=== PATIENT | female | born 1940 | race Caucasian/White ===

== ENCOUNTER 2017-03-27 16:20 | Inpatient (IN) | payer MEDICARE, MEDICAID ==
[2017-03-26] MEDS: HEPARIN SODIUM, PORCINE 5000 UNITS/1 ML VIAL SQ SCH (21:00)
[~2017-03-27] VITALS: Ht 160 cm; Wt 78.9 kg
[2017-03-27] VITALS (11 sets, daily range): BP systolic 144–194; BP diastolic 63–130
[2017-03-27] MEDS ORDERED: methylPREDNISolone SOD SUCC 125 MG/2ML VIAL IV ONE (16:30)
[2017-03-27] MEDS ORDERED: ALBUTEROL FS 2.5 MG/3 ML VIAL.NEB CONTNEB ONE (16:30)
[2017-03-27] MEDS ORDERED: NITROGLYCERIN PACKET 1 GM PACKET TOP ONE (16:30)
[2017-03-27] MEDS ORDERED: IPRATROPIUM NEB FS 0.5 MG/2.5 ML AMPUL.NEB NEB ONE (16:30)
[2017-03-27 16:32] LABS: ABG BASE EXCESS -6.1 mmol/L; ABG OXYGEN SATURATION 93.5 % (92.0-98.5); ABG PCO2 35.4 mmHg (35.0-45.0); ABG PH 7.345 (7.350-7.450); ABG PO2 76.2 mmHg (75.0-100.0); AaDO2 240.5 mmHg; COHb 0.5 % (0.5-1.5); MetHb 0.4 % (0.0-1.5); O2Hb 92.7 % (94.0-97.0); SITE, ABG Left Radial; VENT MODE, BG ST 15/5 BUR 14
[2017-03-27] MEDS ORDERED: methylPREDNISolone SOD SUCC 125 MG/2ML VIAL ONE (16:33)
[2017-03-27] MEDS ORDERED: NITROGLYCERIN PACKET 1 GM PACKET ONE (16:33)
[2017-03-27 16:43] LABS: BASOPHILS % (AUTO) 0.3 % (0.0-2.0); EOSINOPHILS # (AUTO) 0.1 /CMM (0.0-0.7); EOSINOPHILS % (AUTO) 2.5 % (0.0-6.0); HEMATOCRIT 34 % (33-45); HEMOGLOBIN 10.7 g/dL (11.5-14.8); LYMPHOCYTES # (AUTO) 0.5 /CMM (0.8-4.8); LYMPHOCYTES % (AUTO) 9.2 % (20.0-44.0); MEAN CORPUSCULAR HEMOGLOBIN 26 PG (26.0-33.0); MEAN CORPUSCULAR HGB CONC 32 g/dl (31.0-36.0); MEAN CORPUSCULAR VOLUME 81 fL (82-100); MONOCYTES # (AUTO) 0.3 /CMM (0.1-1.30); MONOCYTES % (AUTO) 5.4 % (2.0-12.0); NEUTROPHILS # (AUTO) 4.7 /CMM (1.8-8.9); NEUTROPHILS % (AUTO) 82.6 % (43.0-81.0); PLATELET COUNT (AUTO) 226 /CMM (150-450); RED BLOOD CELL COUNT(AUTO) 4.13 MIL/uL (4.0-5.2); WHITE BLOOD COUNT (AUTO) 5.6 K/uL (4.3-11.0)
[2017-03-27] MEDS ORDERED: ALBUTEROL FS 2.5 MG/3 ML VIAL.NEB ONE (16:43)
[2017-03-27] MEDS ORDERED: IPRATROPIUM NEB FS 0.5 MG/2.5 ML AMPUL.NEB ONE ×2 (16:43→22:52)
[2017-03-27 16:53] LABS: CALCIUM, SERUM 7.8 mg/dL (8.5-10.1); CARBON DIOXIDE 22 mmol/L (21-32); CHLORIDE 104 mmol/L (98-107); CREATININE 2.1 mg/dL (0.6-1.3); GLUCOSE 168 mg/dL (74-106); POTASSIUM 4.5 mmol/L (3.5-5.1); SODIUM SERUM 136 mmol/L (136-145); UREA NITROGEN, BLOOD 45 mg/dL (7-18)
--- NOTE | 2017-03-27 16:55 | NUR ---
CALLED NURSING SUP. FOR ICU BED
[2017-03-27 17:01] LABS: TROPONIN I 0.027 ng/mL (0.00-0.056)
[2017-03-27] MEDS ORDERED: AMLO5TAB2 PO (17:03)
[2017-03-27] MEDS ORDERED: VALS80TA2 PO (17:03)
[2017-03-27] MEDS ORDERED: CARV3.122 PO (17:03)
[2017-03-27 17:06] LABS: ALANINE AMINOTRANSFERASE 19 U/L (12-78); ALBUMIN 2.9 g/dL (3.4-5.0); ALKALINE PHOSPHATASE 115 U/L (46-116); ASPARTATE AMINOTRANSFERASE 21 U/L (15-37); B-TYPE NATRIURETIC PEPTIDE 31886 PG/ML (0-125); BILIRUBIN,DIRECT 0.2 mg/dL (0.0-0.2); BILIRUBIN,TOTAL 0.4 mg/dL (0.2-1.0); TOTAL PROTEIN, SERUM 6.4 g/dL (6.4-8.2)
--- NOTE | 2017-03-27 17:27 | NUR ---
ILA CUENCAD, LEONID WILSON NP SEWER TAPPER
[2017-03-27] MEDS ORDERED: FUROSEMIDE 40 MG/4 ML VIAL IV ONE (17:30)
[2017-03-27] MEDS ORDERED: LEVOFLOXACIN 750 MG /D5W 150ML PIGGYBACK IV ONE (17:30)
[2017-03-27] MEDS ORDERED: ASPIRIN 325 MG TABLET PO ONE (17:30)
[2017-03-27] MEDS ORDERED: IV SET PRIMARY PUMP SET 1 EA INFUS.SET MC ONE ×2 (17:47→20:16)
[2017-03-27] MEDS ORDERED: LEVOFLOXACIN 750 MG /D5W 150ML 150 ML IV ONE (17:47)
[2017-03-27] MEDS ORDERED: ASPIRIN 325 MG TABLET ONE (17:47)
[2017-03-27] MEDS ORDERED: hydrALAZINE HCL IV 20 MG VIAL ONE (17:47)
[2017-03-27] MEDS ORDERED: FUROSEMIDE 40 MG/4 ML VIAL ONE (17:47)
[2017-03-27] MEDS ORDERED: hydrALAZINE HCL IV 20 MG VIAL IV ONE (18:00)
[2017-03-27] MEDS ORDERED: ONDANSETRON HCL/PF 4 MG/2 ML VIAL IVP PRN (18:30)
[2017-03-27] MEDS ORDERED: HYDROCODONE/APAP 5/325MG 1 EACH TABLET PO PRN (18:30)
[2017-03-27] MEDS ORDERED: Z GUARD REMEDY 2 OZ OINT TP PRN (18:30)
[2017-03-27] MEDS ORDERED: MAGNESIUM HYDROXIDE 30 ML UDC PO PRN (18:30)
[2017-03-27] MEDS ORDERED: ACETAMINOPHEN 325 MG TABLET PO PRN (18:30)
[2017-03-27] MEDS ORDERED: MAG HYDROX/AL HYDROX/SIMETH 30 ML UDC PO PRN (18:30)
[2017-03-27] MEDS ORDERED: CEFTRIAXONE 1 G in IV D5W 50 ML IV SCH (19:00)
[2017-03-27] MEDS ORDERED: AZITHROMYCIN 500 MG in IV D5W 250 ML IV SCH (19:00)
--- NOTE | 2017-03-27 19:27 | NUR ---
pt report recived from pastor rn, pt in bed on pi-pap, pt states she is feeling better than before, vss, pt family at bedside will continue to monitor
--- NOTE | 2017-03-27 20:00 | NUR ---
CIVIL ENGINEERING DESIGNER RCD PT FROM ER W/DX CHF; PT IS A/O x4; PT REQUESTING FOR FOOD. WELL WANTING BIPAP REMOVED. PT APPEARS UNCOMFORTABLE. CONTINUE TO MONITOR.
[2017-03-27] MEDS ORDERED: CEFTRIAXONE 1 G VIAL ONE (20:12)
[2017-03-27] MEDS ORDERED: IV D5W 50 ML IV ONE (20:12)
[2017-03-27] MEDS ORDERED: SECONDARY IV SET 1 EA INFUS.SET MC ONE (20:16)
[2017-03-27] MEDS ORDERED: HEPARIN SODIUM, PORCINE 5000 UNITS/1 ML VIAL ONE (20:18)
[2017-03-27] MEDS ORDERED: IV NS 0.9% 250 ML IV ONE (20:21)
[2017-03-27] MEDS: HEPARIN SODIUM, PORCINE 5000 UNITS/1 ML VIAL SQ SCH (20:28)
[2017-03-27] MEDS: ALBUTEROL FS 2.5 MG/0.5 ML VIAL.NEB NEB SCH (20:30)
[2017-03-27] MEDS ORDERED: IV NS 0.9% 250 ML IV PRN (20:30)
--- NOTE | 2017-03-27 20:30 | NUR ---
LEGAL SUPPORT SPECIALIST PT CONTINUES TO APPEAR UNCOMFORTABLE. STATING SHE DOES NOT WANT TO HERE AND DOES NOT WANT TO BE IN THE ICU AND THAT SHE HAS NOT EATEN SINCE MORNING. PT REMAINS ON BIPAP. CALL PLACED TO RT TO EVAL FOR BIPAP REMOVAL.CONTINUE TO MONITOR.
[2017-03-27] MEDS ORDERED: AZITHROMYCIN 500 MG VIAL ONE (20:34)
[2017-03-27] MEDS ORDERED: IV D5W 250 ML IV ONE (20:40)
--- NOTE | 2017-03-27 21:00 | NUR ---
WINDOW GLASS INSTALLER BIPAP REMOVED BY RT; PLACED ON O2 4L NC. MONITOR AND F/U WITH ABG. PT ASKING FOR FOOD.
--- NOTE | 2017-03-27 21:02 | NUR ---
MANAGER CORPORATE COMMUNICATIONS PT DECLINED SECOND IV ACCESS.
--- NOTE | 2017-03-27 21:20 | NUR ---
RESEARCH PROFESSIONAL PT DECLINES SCDS.
[2017-03-27 22:14] LABS: ABG BASE EXCESS -7.5 mmol/L; ABG PCO2 32.4 mmHg (35.0-45.0); ABG PH 7.345 (7.350-7.450); ABG PO2 79.2 mmHg (75.0-100.0); AaDO2 139.9 mmHg; COHb 0.6 % (0.5-1.5); MetHb 0.9 % (0.0-1.5); O2Hb 92.6 % (94.0-97.0); SITE, ABG Left Radial
[2017-03-27] MEDS ORDERED: ALBUTEROL FS 2.5 MG/0.5 ML VIAL.NEB ONE (22:52)
[2017-03-27] MEDS: IPRATROPIUM NEB FS 0.5 MG/2.5 ML AMPUL.NEB NEB SCH (22:58)
[2017-03-28] VITALS (22 sets, daily range): BP systolic 137–168; BP diastolic 62–103
[2017-03-28] MEDS ORDERED: ALBUTEROL FS 2.5 MG/0.5 ML VIAL.NEB ONE (01:34)
[2017-03-28] MEDS ORDERED: IPRATROPIUM NEB FS 0.5 MG/2.5 ML AMPUL.NEB ONE (01:34)
[2017-03-28] MEDS: IPRATROPIUM NEB FS 0.5 MG/2.5 ML AMPUL.NEB NEB SCH ×3 (01:38→19:19)
[2017-03-28] MEDS: ALBUTEROL FS 2.5 MG/0.5 ML VIAL.NEB NEB SCH ×3 (01:38→19:19)
[2017-03-28 04:54] LABS: EOSINOPHILS % (AUTO) 1.4 % (0.0-6.0); HEMATOCRIT 30 % (33-45); HEMOGLOBIN 9.6 g/dL (11.5-14.8); LYMPHOCYTES # (AUTO) 0.3 /CMM (0.8-4.8); LYMPHOCYTES % (AUTO) 11.4 % (20.0-44.0); MEAN CORPUSCULAR HEMOGLOBIN 26 PG (26.0-33.0); MEAN CORPUSCULAR HGB CONC 32 g/dl (31.0-36.0); MEAN CORPUSCULAR VOLUME 82 fL (82-100); MONOCYTES # (AUTO) 0.1 /CMM (0.1-1.30); MONOCYTES % (AUTO) 2.9 % (2.0-12.0); NEUTROPHILS # (AUTO) 2.4 /CMM (1.8-8.9); NEUTROPHILS % (AUTO) 84.3 % (43.0-81.0); PLATELET COUNT (AUTO) 181 /CMM (150-450); RDW COEFFICIENT OF VARIATION 17.1 (11.5-15.0); WHITE BLOOD COUNT (AUTO) 2.8 K/uL (4.3-11.0)
[2017-03-28 05:22] LABS: ALANINE AMINOTRANSFERASE 18 U/L (12-78); ALBUMIN 2.4 g/dL (3.4-5.0); ALKALINE PHOSPHATASE 97 U/L (46-116); ASPARTATE AMINOTRANSFERASE 11 U/L (15-37); BILIRUBIN,TOTAL 0.3 mg/dL (0.2-1.0); CALCIUM, SERUM 7.8 mg/dL (8.5-10.1); CARBON DIOXIDE 24 mmol/L (21-32); CHLORIDE 104 mmol/L (98-107); GLUCOSE 195 mg/dL (74-106); PHOSPHORUS 4.5 mg/dL (2.5-4.9); POTASSIUM 4.4 mmol/L (3.5-5.1); SODIUM SERUM 135 mmol/L (136-145); TOTAL PROTEIN, SERUM 5.8 g/dL (6.4-8.2); UREA NITROGEN, BLOOD 48 mg/dL (7-18)
[2017-03-28 05:29] LABS: CHOLESTEROL 163 mg/dL (<200); HDL CHOLESTEROL 38 mg/dL (40-60); LDL 92 mg/dL (0-99); THYROID STIMULATING HORMONE 0.418 uIU/mL (0.358-3.74); TRIGLYCERIDES 103 mg/dL (30-150)
[2017-03-28 05:53] LABS: LYMPHOCYTES % (MANUAL) 9 % (16-48); MONOCYTES % (MANUAL) 2 % (0-11.0); NEUTROPHILS % (MANUAL) 89 (42-76)
--- NOTE | 2017-03-28 08:00 | NUR ---
ON 8 AM ASSESSMENT, PT AOX4, VSS, DENIES CHEST PAIN, DENIES SOB AT REST. MILD SOB ON EXERTION, DRY COUGH. MEDICATED SCHEDULED.
[2017-03-28] MEDS: CARVEDILOL 6.25 MG TABLET PO SCH ×2 (08:29→21:42)
[2017-03-28] MEDS: PANTOPRAZOLE 40 MG TABLET.DR PO SCH (08:29)
[2017-03-28] MEDS: AMLODIPINE BESYLATE 5 MG TABLET PO SCH (08:29)
[2017-03-28] MEDS: HEPARIN SODIUM, PORCINE 5000 UNITS/1 ML VIAL SQ SCH ×2 (08:31→21:00)
--- NOTE | 2017-03-28 09:59 | NUR ---
PT SEEN BY CRISTINA LEVY TO TRANSFER TO [facility]. PT TRANSFERED TO ROOM 103, WITH BELONGINGS. REPORT TO JOSE BARAJAS.
--- NOTE | 2017-03-28 10:15 | NUR ---
RN [facility] RECEIVED PATIENT FROM THE ICU. ALERT AND AWAKE. STABLE VITAL SINGS. AFEBRILE. WILL CONTINUE TO MONITOR.
[2017-03-28] MEDS: FUROSEMIDE 40 MG/4 ML VIAL IV SCH ×2 (11:08→18:05)
[2017-03-28] MEDS: ASPIRIN 81 MG TAB.CHEW PO SCH (11:08)
--- NOTE | 2017-03-28 19:20 | NUR ---
RN INITIAL NOTE RECEIVED PT IN NO ACUTE DISTRESS IN BED. PT IS A/O X 3 AND ABLE TO MAKE NEEDS KNOWN. PT IS QATARI SPEAKING. PT IS ON O2 VIA NC @ 2LPM AND TOLERATING WELL WITH O2 SAT @ 100%. PT NOT C/O ANY SOB, DIFFICULTY BREATHING OR PAIN AT THIS TIME. PT IS ON TELE WITH SR 1ST DEGREE BLOCK ON THE MONITOR. PT HAS BRP AND IS ABLE TO AMBULATE WITH ASSISTIVE DEVICE AND ASSISTANCE. PT HAS RFA 18G THAT IS CLEAN DRY INTACT AND PATENT WITH SALINE FLUSH. IV IS SALINE LOCKED. BED IN LOW LOCK POSITION WITH RAILS UP X 2. CALL LIGHT WITHIN REACH AND ALL SAFETY MEASURES ENSURED AND CARRIED OUT. WILL CONTINUE TO MONITOR PT.
[2017-03-28] MEDS ORDERED: SECONDARY IV SET 1 EA INFUS.SET MC ONE ×2 (20:01→21:20)
[2017-03-28] MEDS ORDERED: IV NS 0.9% 250 ML IV ONE (20:01)
[2017-03-28] MEDS ORDERED: IV SET PRIMARY PUMP SET 1 EA INFUS.SET MC ONE (20:01)
[2017-03-28 20:05] LABS: APPEARANCE,URINE CLEAR (CLEAR); BILIRUBIN,URINE NEGATIVE (NEGATIVE); BLOOD, URINE TRACE-INTA Ery/uL (NEGATIVE); COLOR,URINE YELLOW (YELLOW); KETONES,URINE NEGATIVE (NEGATIVE); LEUKOCYTE ESTERASE ,URINE NEGATIVE (NEGATIVE); NITRITE, URINE NEGATIVE (NEGATIVE); PH,URINE 5.5 (5.0-8.0); PROTEIN,URINE 2+ mg/dl (NEGATIVE); UGLUCOSE NEGATIVE (NEGATIVE); UROBILINOGEN,URINE 0.2 EU/dL (0.2)
[2017-03-28 20:12] LABS: URINE TOTAL PROTEIN 140.6 mg/dL (0-11.9)
[2017-03-28] MEDS: CEFTRIAXONE 1 G in IV D5W 50 ML IV SCH (20:20)
[2017-03-28 20:22] LABS: RBC,URINE 0-2 /HPF (0-2); WBC,URINE 0-2 /HPF (0-3)
[2017-03-28 20:23] LABS: BACTERIA,URINE Rare /HPF (None Seen); MUCUS,URINE Few /LPF (None Seen)
[2017-03-28 21:29] LABS: EOSINOPHIL,URINE None Seen
[2017-03-28] MEDS: ATORVASTATIN 10 MG TABLET PO SCH (21:42)
[2017-03-28] MEDS: AZITHROMYCIN 500 MG in IV D5W 250 ML IV SCH (21:42)
[2017-03-29] VITALS: BP 129/50
[2017-03-29] MEDS: IPRATROPIUM NEB FS 0.5 MG/2.5 ML AMPUL.NEB NEB SCH ×4 (01:14→20:27)
[2017-03-29] MEDS: ALBUTEROL FS 2.5 MG/0.5 ML VIAL.NEB NEB SCH ×4 (01:14→20:27)
[2017-03-29 04:00] VITALS: BP 97/56
[2017-03-29 06:32] LABS: CREATINE KINASE, TOTAL 31 U/L (26-192)
[2017-03-29 06:37] LABS: EOSINOPHILS # (AUTO) 0.1 /CMM (0.0-0.7); EOSINOPHILS % (AUTO) 2.8 % (0.0-6.0); HEMATOCRIT 31 % (33-45); LYMPHOCYTES # (AUTO) 0.5 /CMM (0.8-4.8); LYMPHOCYTES % (AUTO) 10.1 % (20.0-44.0); MEAN CORPUSCULAR HEMOGLOBIN 27 PG (26.0-33.0); MEAN CORPUSCULAR HGB CONC 33 g/dl (31.0-36.0); MEAN CORPUSCULAR VOLUME 82 fL (82-100); MONOCYTES # (AUTO) 0.4 /CMM (0.1-1.30); MONOCYTES % (AUTO) 7.1 % (2.0-12.0); PLATELET COUNT (AUTO) 216 /CMM (150-450); RDW COEFFICIENT OF VARIATION 17.1 (11.5-15.0); RED BLOOD CELL COUNT(AUTO) 3.73 MIL/uL (4.0-5.2); WHITE BLOOD COUNT (AUTO) 5.1 K/uL (4.3-11.0)
--- NOTE | 2017-03-29 06:49 | NUR ---
RN CLOSING NOTE PT REMAINS IN NO ACUTE DISTRESS IN BED. PT DID NOT HAVE ANY SIGNIFICANT CHANGE IN CONDITION DURING SHIFT. ALL NEEDS MET ALL ORDERS CARRIED OUT. WILL ENDORSE REPORT TO AM RN FOR CONTINUITY OF CARE.
[2017-03-29 06:57] LABS: ALANINE AMINOTRANSFERASE 15 U/L (12-78); ALBUMIN 2.5 g/dL (3.4-5.0); ALKALINE PHOSPHATASE 88 U/L (46-116); ASPARTATE AMINOTRANSFERASE 9 U/L (15-37); BILIRUBIN,TOTAL 0.2 mg/dL (0.2-1.0); CALCIUM, SERUM 7.7 mg/dL (8.5-10.1); CARBON DIOXIDE 26 mmol/L (21-32); CHLORIDE 104 mmol/L (98-107); CREATININE 2.4 mg/dL (0.6-1.3); GLUCOSE 117 mg/dL (74-106); MAGNESIUM 1.9 mg/dL (1.8-2.4); PHOSPHORUS 4.9 mg/dL (2.5-4.9); POTASSIUM 4.3 mmol/L (3.5-5.1); SODIUM SERUM 138 mmol/L (136-145); TOTAL PROTEIN, SERUM 5.8 g/dL (6.4-8.2); UREA NITROGEN, BLOOD 57 mg/dL (7-18)
[2017-03-29] MEDS ORDERED: SECONDARY IV SET 1 EA INFUS.SET MC ONE (07:11)
[2017-03-29] MEDS: PANTOPRAZOLE 40 MG TABLET.DR PO SCH (07:30)
[2017-03-29 08:00] VITALS: BP 168/69
--- NOTE | 2017-03-29 08:00 | NUR ---
[facility] INITIAL NOTE- RECEIVED PT A/O X3, GEORGIAN/SENEGALESE SPEAKING. ON 2L NC, RESPIRATIONS EVEN AND UNLABORED, NO SOB OR DISTRESS PRESENT. PT DENIES PAIN OR DISCOMFORT. TELE MONITOR REVEALS SINUS RHYTHM WITH OCCASIONAL PVCS, HR= 68. RFA 18G HL FLUSHED, PATENT AND INTACT. IV SITE FREE OF REDNESS, SWELLING AND INFLAMMATION. PT CONTINENT OF URINE & STOOL, HAT PLACED IN TOILET FOR STRICT/ACCURATE I&OS. SAFETY MEASURES TAKEN: BED LOCKED AND IN LOW POSITION, SIDE RAILS UP X2, BED ALARM ON AND CALL LIGHT WITHIN REACH, WILL CONTINUE TO MONITOR.
[2017-03-29] MEDS: AMLODIPINE BESYLATE 5 MG TABLET PO SCH (08:55)
[2017-03-29] MEDS: ASPIRIN 81 MG TAB.CHEW PO SCH (08:55)
[2017-03-29] MEDS: CARVEDILOL 6.25 MG TABLET PO SCH ×2 (08:56→20:50)
[2017-03-29] MEDS: FUROSEMIDE 40 MG/4 ML VIAL IV SCH ×2 (08:56→16:54)
[2017-03-29] MEDS: HEPARIN SODIUM, PORCINE 5000 UNITS/1 ML VIAL SQ SCH ×2 (09:00→21:09)
[2017-03-29 10:13] LABS: EOSINOPHILS % (MANUAL) 2 % (0-4); LYMPHOCYTES % (MANUAL) 14 % (16-48); MONOCYTES % (MANUAL) 10 % (0-11.0); NEUTROPHILS % (MANUAL) 74 (42-76)
--- NOTE | 2017-03-29 10:58 | NUR ---
WOUND CARE CONSULT: PT REFUSED SKIN ASSESSMENT. PT IS AMBULATORY AND CONTINENT. WILL SEE PRN. IN AGREEMENT WITH PLAN OF CARE.
[2017-03-29 12:00] VITALS: BP_SYST 132; BP_DIAS 49; BP_DIAS 69
--- NOTE | 2017-03-29 13:30 | NUR ---
[facility] NOTE- PT'S SON AT BEDSIDE. PT IN NO ACUTE DISTRESS, APPEARS COMFORTABLE. DENIES PAIN OR DISCOMFORT. ALL NEEDS ATTENDED. WILL CONTINUE TO MONITOR.
[2017-03-29 16:00] VITALS: BP 154/58
[2017-03-29] MEDS: LACTOBACILLUS RHAMNOSUS GG 1 EACH CAP.SPRINK PO SCH (16:55)
--- NOTE | 2017-03-29 18:00 | NUR ---
PROCESS CHECKER- PT STATES SHE HAS URINATED 3 TIMES DURING MY SHIFT. I EMPTIED 500 MLS TOTAL OF URINE THROUGHOUT MY SHIFT BUT WAS UNABLE TO MEASURE 1 TIME PT URINATED ( PT REMOVED THE HAT FROM THE TOILET). I REINFORCED TO THE PATIENT THAT SHE NEEDS TO URINATE IN HAT FOR ACCURATE MEASUREMENT OF HER URINE OUTPUT, ORDERED BY MD. PT'S SON AT BEDSIDE TO REINFORCE MY TEACHING. WILL CONTINUE TO MONITOR.
[2017-03-29 19:17] LABS: APPEARANCE,URINE CLEAR (CLEAR); BILIRUBIN,URINE NEGATIVE (NEGATIVE); BLOOD, URINE NEGATIVE Ery/uL (NEGATIVE); COLOR,URINE YELLOW (YELLOW); KETONES,URINE NEGATIVE (NEGATIVE); LEUKOCYTE ESTERASE ,URINE NEGATIVE (NEGATIVE); NITRITE, URINE NEGATIVE (NEGATIVE); PH,URINE 5.5 (5.0-8.0); PROTEIN,URINE 1+ mg/dl (NEGATIVE); UGLUCOSE NEGATIVE (NEGATIVE); UROBILINOGEN,URINE 0.2 EU/dL (0.2)
--- NOTE | 2017-03-29 19:30 | NUR ---
RN NOTES RECEIVED PT AWAKE ON BED WITH SON AT BEDSIDE. AOX3 ABLE TO VERBALIZED NEEDS IN [place]ERBAIJANI LANGUAGE. NO ACUTE RESP DISTRESS TOLERATED O2 2LPM VIA NC. SATING 99%. IV SITE ON RFA G 18 SL. INTACT AND PATENT. ENCOURAGED PT TO URINATE TO HAT FOR STRICTLY I&O FOR RIGHT MEASUREMENT. PT AWARE AND DEMONSTRATE UNDERSTANDING. [id number] CC URINE OUTPUT FROM THE HAT. NO ACUTE RESP DISTRESS.KEPT PT CLEAN AND COMFORTABLE IN BED.WILL CONTINUE TO MONITOR.
[2017-03-29 19:31] LABS: CREATININE, URINE < 13.0 MG/DL (30.0-125.0); URINE SODIUM, RANDOM 93 mmol/l (40-220); URINE TOTAL PROTEIN 62.4 mg/dL (0-11.9)
[2017-03-29 19:51] LABS: RBC,URINE NONE SEEN /HPF (0-2)
[2017-03-29 19:52] LABS: BACTERIA,URINE None seen /HPF (None Seen); WBC,URINE 0-2 /HPF (0-3)
[2017-03-29 19:53] LABS: SQUAMOUS EPITHELIAL CELL,UR Few /HPF (None Seen)
[2017-03-29 20:00] VITALS: BP 155/61
[2017-03-29 20:04] LABS: EOSINOPHIL,URINE None Seen
[2017-03-29] MEDS: CEFTRIAXONE 1 G in IV D5W 50 ML IV SCH (20:50)
[2017-03-29] MEDS: ATORVASTATIN 10 MG TABLET PO SCH (21:06)
[2017-03-29] MEDS: AZITHROMYCIN 500 MG in IV D5W 250 ML IV SCH (21:09)
[2017-03-30] VITALS: BP 135/81
[2017-03-30] MEDS: IPRATROPIUM NEB FS 0.5 MG/2.5 ML AMPUL.NEB NEB SCH ×4 (01:30→19:30)
[2017-03-30] MEDS: ALBUTEROL FS 2.5 MG/0.5 ML VIAL.NEB NEB SCH ×4 (01:30→19:30)
[2017-03-30 04:00] VITALS: BP 145/54
--- NOTE | 2017-03-30 06:48 | NUR ---
RN NOTES PT SLEEP FOR ABOUT 2 HOUR FOR TIME TO TIME WOKE UP AND ASSISTED TO THE BATHROOM WITH GOOD AMOUNT OUTPUT, COMPLIANT WITH CARE ALL DUE MEDICINE TOLERATED WELL. NO ASE FROM IV ATB. KEPT PT CLEAN AND COMFORTABLE IN BED. WILL ENDORSED CONTINUITY OF CARE TO AM NURSE
[2017-03-30 07:08] LABS: BASOPHILS % (AUTO) 0.2 % (0.0-2.0); EOSINOPHILS # (AUTO) 0.3 /CMM (0.0-0.7); EOSINOPHILS % (AUTO) 6.8 % (0.0-6.0); HEMATOCRIT 32 % (33-45); HEMOGLOBIN 10.3 g/dL (11.5-14.8); LYMPHOCYTES # (AUTO) 0.8 /CMM (0.8-4.8); LYMPHOCYTES % (AUTO) 17.2 % (20.0-44.0); MEAN CORPUSCULAR HEMOGLOBIN 27 PG (26.0-33.0); MEAN CORPUSCULAR HGB CONC 33 g/dl (31.0-36.0); MEAN CORPUSCULAR VOLUME 82 fL (82-100); MONOCYTES # (AUTO) 0.5 /CMM (0.1-1.30); MONOCYTES % (AUTO) 9.8 % (2.0-12.0); NEUTROPHILS # (AUTO) 3.2 /CMM (1.8-8.9); PLATELET COUNT (AUTO) 246 /CMM (150-450); RDW COEFFICIENT OF VARIATION 16.7 (11.5-15.0); RED BLOOD CELL COUNT(AUTO) 3.87 MIL/uL (4.0-5.2); WHITE BLOOD COUNT (AUTO) 4.8 K/uL (4.3-11.0)
[2017-03-30 07:24] LABS: CALCIUM, SERUM 7.7 mg/dL (8.5-10.1); CARBON DIOXIDE 26 mmol/L (21-32); CHLORIDE 102 mmol/L (98-107); CREATININE 2.3 mg/dL (0.6-1.3); GLUCOSE 65 mg/dL (74-106); MAGNESIUM 1.8 mg/dL (1.8-2.4); SODIUM SERUM 138 mmol/L (136-145); UREA NITROGEN, BLOOD 58 mg/dL (7-18)
[2017-03-30 08:00] VITALS: BP 156/47
--- NOTE | 2017-03-30 08:00 | NUR ---
TD/RN AM SHIFT INITIAL NOTES RECEIVED PT AWAKE SITTING IN BED. NO ACUTE RESPIRATORY DISTRESS OR CHANGE OF CONDITION NOTED. PT A/O X 3, COMORAN AND SUDANESE SPEAKING. DENIES ANY SYMPTOMS AT THIS TIME. ON 2L OS VIA N/C NOTED WITH DIMINISHED LUNG SOUNDS, PITTING EDEMA ABOUT +2 ON LOWER EXTREMITIES, SL. ON TELE WITH SINUS RHYTHM, HR 67 WITH BBB. IV SITE FLUSHED PATENT WITH NO S/S OF INFECTION. PT REFUSED SCHEDULED MEDS COREG, NORVASC AND HEPARIN. RISKS AND BENEFITS EXPLAINED, PT VERBALIZED UNDERSTANDING BUT STILL REFUSED. PRIMARY MD TO BE NOTIFIED. OTHER SCHEDULED MEDS GIVEN. CL WITHIN REACHED AND SAFETY MAINTAINED. ON GOING MONITORING.
[2017-03-30] MEDS: HEPARIN SODIUM, PORCINE 5000 UNITS/1 ML VIAL SQ SCH ×4 (08:44→21:35)
[2017-03-30] MEDS: FUROSEMIDE 40 MG/4 ML VIAL IV SCH ×2 (08:44→16:24)
[2017-03-30] MEDS: CARVEDILOL 6.25 MG TABLET PO SCH ×3 (08:45→16:24)
[2017-03-30] MEDS: ASPIRIN 81 MG TAB.CHEW PO SCH (08:45)
[2017-03-30] MEDS: PANTOPRAZOLE 40 MG TABLET.DR PO SCH (08:45)
[2017-03-30] MEDS: LACTOBACILLUS RHAMNOSUS GG 1 EACH CAP.SPRINK PO SCH ×2 (08:45→16:24)
[2017-03-30] MEDS: AMLODIPINE BESYLATE 5 MG TABLET PO SCH ×3 (08:45→16:24)
[2017-03-30 08:50] LABS: PROTHROMBIN TIME 10.7 SECS (9.5-12.7)
[2017-03-30 14:16] LABS: *SPE A/G RATIO 1.2 (0.7-1.7); *SPE ALBUMIN 2.9 g/dL (2.9-4.4); *SPE ALPHA-1-GLOBULIN 0.3 g/dL (0.0-0.4); *SPE ALPHA-2-GLOBULIN 0.9 g/dL (0.4-1.0); *SPE BETA GLOBULIN 0.7 g/dL (0.7-1.3); *SPE GLOBULIN, TOTAL 2.5 g/dL (2.2-3.9); *SPE M-SPIKE Not Observed g/dL (Not Observed); *SPE PROTEIN TOTAL 5.4 g/dL (6.0-8.5); *SPEGAMMA GLOBULIN 0.7 g/dL (0.4-1.8)
[2017-03-30 16:00] VITALS: BP 162/49
--- NOTE | 2017-03-30 16:29 | NUR ---
MS/RN HIGH BP PT NOTED WITH HIGHER BP THAN THIS MORNING. PT REFUSED HER BP MEDS THIS MORNING. CALLED AND SPOKE TO DR. ADAIR TO VERIFY IF IT IS OKAY TO GIVE THE PT'S BP MEDS FOR THIS MORNING SINCE THERE IS NOR PRN MEDS FOR HIGH BP. PER MD IT IS OKAY TO GIVE. PT TOOK THE MEDICATIONS. NO OTHER CONDITIONS NOTED. MONITORING CONTINUED.
--- NOTE | 2017-03-30 19:12 | NUR ---
MS1/RN AM SHIFT END NOTES ALL NEEDS MET. NO ACUTE CHANGE OF CONDITION NOTED DURING THE SHIFT. PT ENDORSED TO PM NURSE TO CONTINUE CARE. CL WITHIN REACHED AND SAFETY MAINTAINED.
--- NOTE | 2017-03-30 19:30 | NUR ---
MS RN INITIAL NOTE RECEIVED REPORT FROM SWATI GARCIA. PT IN BED. A/A/O X4, SON AT BEDSIDE. PT INDONESIAN/TURKS AND [place] ISLANDER SPEAKING. LUNG SOUNDS CLEAR BOWEL SOUNDS PRESENT. BRP WITH WALKER. BED IN LOW LOCKED POSITION. CALL LIGHT WITHIN REACH. WILL CONTINUE TO MONITOR.
[2017-03-30 20:00] VITALS: BP 156/75
[2017-03-30 20:08] VITALS: BP 156/75
[2017-03-30] MEDS: ATORVASTATIN 10 MG TABLET PO SCH ×2 (21:34→21:44)
--- NOTE | 2017-03-30 21:45 | NUR ---
MS RN PT IS REFUSING MEDICATION. SAYS SHE WILL TAKE IT IN THE MORNING. LIPITOR AND HEPARIN NOT ADMINISTERED.
[2017-03-31] MEDS: ALBUTEROL FS 2.5 MG/0.5 ML VIAL.NEB NEB SCH ×3 (01:30→13:51)
[2017-03-31] MEDS: IPRATROPIUM NEB FS 0.5 MG/2.5 ML AMPUL.NEB NEB SCH ×3 (01:30→13:51)
[2017-03-31 04:00] VITALS: BP 159/67
[2017-03-31 04:24] VITALS: BP 140/72
[2017-03-31 04:32] VITALS: BP 159/67
[2017-03-31] MEDS: PANTOPRAZOLE 40 MG TABLET.DR PO SCH (07:30)
--- NOTE | 2017-03-31 07:53 | NUR ---
RN NOTES RECEIVED PT AWAKE SITTING IN BED WITH NAD. DENIES PAIN AT THIS TIME. RT HAND IVHL IN PLACE. ALL NEEDS ATTENDED. SAFETY ENSURED. WILL MONITOR
[2017-03-31 07:57] LABS: BASOPHILS % (AUTO) 0.1 % (0.0-2.0); EOSINOPHILS # (AUTO) 0.4 /CMM (0.0-0.7); HEMATOCRIT 33 % (33-45); HEMOGLOBIN 10.8 g/dL (11.5-14.8); LYMPHOCYTES # (AUTO) 0.9 /CMM (0.8-4.8); LYMPHOCYTES % (AUTO) 17.3 % (20.0-44.0); MEAN CORPUSCULAR HEMOGLOBIN 26 PG (26.0-33.0); MEAN CORPUSCULAR HGB CONC 33 g/dl (31.0-36.0); MEAN CORPUSCULAR VOLUME 81 fL (82-100); MONOCYTES # (AUTO) 0.4 /CMM (0.1-1.30); MONOCYTES % (AUTO) 8.3 % (2.0-12.0); NEUTROPHILS # (AUTO) 3.4 /CMM (1.8-8.9); NEUTROPHILS % (AUTO) 67.3 % (43.0-81.0); PLATELET COUNT (AUTO) 258 /CMM (150-450); RDW COEFFICIENT OF VARIATION 16.7 (11.5-15.0)
[2017-03-31] MEDS: FUROSEMIDE 40 MG/4 ML VIAL IV SCH ×2 (08:04→16:28)
[2017-03-31] MEDS: CARVEDILOL 6.25 MG TABLET PO SCH (08:05)
[2017-03-31] MEDS: ASPIRIN 81 MG TAB.CHEW PO SCH (08:05)
[2017-03-31] MEDS: LACTOBACILLUS RHAMNOSUS GG 1 EACH CAP.SPRINK PO SCH ×2 (08:05→16:29)
[2017-03-31] MEDS: HEPARIN SODIUM, PORCINE 5000 UNITS/1 ML VIAL SQ SCH (08:06)
--- NOTE | 2017-03-31 08:06 | NUR ---
RN NOTES PT REFUSED ALL DUE MEDS, TEACHINGS REINFORCED, RISK AND BENEFITS EXPLAINED BUT PT STRONGLY REFUSED
[2017-03-31 08:13] VITALS: BP 169/68
[2017-03-31 08:20] LABS: CALCIUM, SERUM 7.7 mg/dL (8.5-10.1); CARBON DIOXIDE 27 mmol/L (21-32); CHLORIDE 102 mmol/L (98-107); CREATININE 2.3 mg/dL (0.6-1.3); GLUCOSE 119 mg/dL (74-106); POTASSIUM 4.2 mmol/L (3.5-5.1); SODIUM SERUM 138 mmol/L (136-145); UREA NITROGEN, BLOOD 56 mg/dL (7-18)
[2017-03-31] MEDS ORDERED: ERGOCALCIFEROL (VITAMIN D 2) 50,000 UNIT CAPSULE PO SCH (09:30)
--- NOTE | 2017-03-31 09:55 | NUR ---
RN NOTES PT SEEN AND ASSESSED BY DR Barbara ADDISON MD AWARE RE PTS REFUSAL TO MEDS
[2017-03-31 13:13] LABS: CALCITRIOL VIT D,1, 25 DIHYDRO 33.9 pg/mL (19.9-79.3)
[2017-03-31 16:00] VITALS: BP 141/66
--- NOTE | 2017-03-31 18:07 | NUR ---
RN NOTES PT WITH DISCHARGE ORDER. ALL DISCHARGE INSTRUCTIONS GIVEN TO THE PT AND HER SON TRANSLATED (FILIPINO) BY Yuri Flores. PRESCRIPTION GIVEN AND ALL DETAILED TEACHINGS GIVEN ; BOTH VERBALIZED UNDERSTANDING. IV ACCESS REMOVED WITH INTACT TIP. PT HAS NO COMPLAINTS OF ANY PAIN OR SOB.
[2017-04-01 14:22] LABS: PTH, INTACT 168 pg/mL (15-65)
== END 2017-03-31 18:29 | disposition home or self-care (01) | DRG 291 ==
LOC: ER 16:21 → ICU 19:02 → TELE-TD 03-28 09:30 → MEDSG1 03-30 10:01
PROVIDERS: ADMIT Nurse Practitioner Acute Care; ATTEND Nurse Practitioner Acute Care
PROC: 5A09357 Assistance with Respiratory Ventilation, Less than 24 Consecutive Hours, Continuous Positive Airway Pressure (ICD-10-PCS; principal; 2017-03-27)
DX: I13.0 Hypertensive heart and chronic kidney disease with heart failure and stage 1 through stage 4 chronic kidney disease, or unspecified chronic kidney disease (principal); J18.9 Pneumonia, unspecified organism; J96.01 Acute respiratory failure with hypoxia; I50.31 Acute diastolic (congestive) heart failure; J44.0 Chronic obstructive pulmonary disease with (acute) lower respiratory infection; E44.0 Moderate protein-calorie malnutrition; N17.9 Acute kidney failure, unspecified; I16.0 Hypertensive urgency; E11.22 Type 2 diabetes mellitus with diabetic chronic kidney disease; D63.1 Anemia in chronic kidney disease; I25.10 Atherosclerotic heart disease of native coronary artery without angina pectoris; N18.9 Chronic kidney disease, unspecified; Z87.891 Personal history of nicotine dependence; E88.09 Other disorders of plasma-protein metabolism, not elsewhere classified; Z68.30 Body mass index [BMI] 30.0-30.9, adult; E11.51 Type 2 diabetes mellitus with diabetic peripheral angiopathy without gangrene; G47.33 Obstructive sleep apnea (adult) (pediatric); J40 Bronchitis, not specified as acute or chronic; I34.0 Nonrheumatic mitral (valve) insufficiency; I36.1 Nonrheumatic tricuspid (valve) insufficiency
CPT/HCPCS: 36415; 36600; 71010-TC; 80048-TC; 80053-TC; 80061-TC; 80076-TC; 81000-TC; 82306; 82550-TC; 82570-TC; 82652; 83605-TC; 83735-TC; 83880; 83970; 84100-TC; 84155; 84155-TC; 84165; 84300-TC; 84443-TC; 84484-TC; 85025-TC; 85610-TC; 85730-TC; 87040-TC; 87081-TC; 93307-TC; 94799-TC; A4606; J0360; J0456; J0696; J1644; J1940; J1956; J2930; J7050; J7060; Z7610

== ENCOUNTER 2017-04-02 20:59 | Inpatient (IN) | payer MEDICARE, MEDICAID ==
[~2017-04-02] VITALS: Ht 162.6 cm; Wt 76.2 kg
[~2017-04-02 20:59] MED LIST: AMLO5TAB2 PO; VALS80TA2 PO
[2017-04-02] MEDS ORDERED: methylPREDNISolone SOD SUCC 125 MG/2ML VIAL ONE (21:03)
[2017-04-02] MEDS ORDERED: TERBUTALINE SULFATE 1 MG/ML VIAL ONE (21:03)
[2017-04-02] MEDS ORDERED: Magnesium 1GM/D5W 100ML PREMIX 200 ML IV ONE ×2 (21:03→21:04)
[2017-04-02] MEDS ORDERED: IPRATROPIUM NEB FS 0.5 MG/2.5 ML AMPUL.NEB ONE (21:04)
[2017-04-02] MEDS ORDERED: ALBUTEROL FS 2.5 MG/3 ML VIAL.NEB ONE (21:04)
[2017-04-02] MEDS ORDERED: IV SET PRIMARY PUMP SET 1 EA INFUS.SET MC ONE ×4 (21:04→23:50)
--- NOTE | 2017-04-02 21:10 | NUR ---
TO BED 5 A 76 YO FEMALE BIBRA#39 PER EMS PT WAS RELEASED FROM THE ICU THIS MORNING AND WAS FOR HAVING SOB ALL DAY PT GIVEN 2 SPRAYSOF NITRO AND ON CPAP PRIOR TO ARRIVAL. UPON ARRIVAL TO ER, PATIENT NOTED WITH LABORED BREATHING, PER EMS PATIENT WAS SATTING AT 83% ON ROOM AIR, RALES HEARD ON AMADO BASILAR LUNGS. KEPT HOB ELEVATED. RT AT BEDSIDE FOR CPAP. DR SCOTT AT BEDSIDE FOR EVAL. ONGOING VSS MONITORING. INITIATED COMFORT MEASURES.
--- NOTE | 2017-04-02 21:10 | NUR ---
18g left ac iv started. blood sample obatined and sent to lab
[2017-04-02 21:13] VITALS: BP 187/92
[2017-04-02 21:13] LABS: BASOPHILS # (AUTO) 0.1 /CMM (0.0-0.2); BASOPHILS % (AUTO) 0.7 % (0.0-2.0); EOSINOPHILS # (AUTO) 0.2 /CMM (0.0-0.7); EOSINOPHILS % (AUTO) 1.1 % (0.0-6.0); HEMATOCRIT 37 % (33-45); LYMPHOCYTES # (AUTO) 1.5 /CMM (0.8-4.8); LYMPHOCYTES % (AUTO) 9.5 % (20.0-44.0); MEAN CORPUSCULAR HEMOGLOBIN 26 PG (26.0-33.0); MEAN CORPUSCULAR HGB CONC 32 g/dl (31.0-36.0); MEAN CORPUSCULAR VOLUME 81 fL (82-100); MONOCYTES # (AUTO) 0.4 /CMM (0.1-1.30); MONOCYTES % (AUTO) 2.5 % (2.0-12.0); NEUTROPHILS # (AUTO) 14.1 /CMM (1.8-8.9); NEUTROPHILS % (AUTO) 86.2 % (43.0-81.0); PLATELET COUNT (AUTO) 409 /CMM (150-450); RDW COEFFICIENT OF VARIATION 15.9 (11.5-15.0); WHITE BLOOD COUNT (AUTO) 16.3 K/uL (4.3-11.0)
[2017-04-02 21:28] LABS: INR 1.02 (0.87-1.13); PROTHROMBIN TIME 10.6 SECS (9.5-12.7)
[2017-04-02] MEDS ORDERED: methylPREDNISolone SOD SUCC 125 MG/2ML VIAL IV ONE (21:30)
[2017-04-02] MEDS ORDERED: IPRATROPIUM NEB FS 0.5 MG/2.5 ML AMPUL.NEB NEB ONE (21:30)
[2017-04-02] MEDS ORDERED: TERBUTALINE SULFATE 1 MG/ML VIAL SQ ONE (21:30)
[2017-04-02] MEDS ORDERED: ALBUTEROL FS 2.5 MG/3 ML VIAL.NEB NEB ONE (21:30)
[2017-04-02] MEDS ORDERED: ENALAPRILAT INJ (1.25 MG/ML) 1.25 MG/ML VIAL IV PRN (21:30)
[2017-04-02 21:31] LABS: TROPONIN I 0.092 ng/mL (0.00-0.056)
[2017-04-02] MEDS ORDERED: ENALAPRILAT DIHYD. (2.5MG/ML) 1.25 MG/ML VIAL IV ONE (21:35)
[2017-04-02 21:36] LABS: ABG BASE EXCESS -2.2 mmol/L; ABG OXYGEN SATURATION 95.4 % (92.0-98.5); ABG PCO2 44.8 mmHg (35.0-45.0); ABG PH 7.341 (7.350-7.450); ABG PO2 93.4 mmHg (75.0-100.0); AaDO2 285.1 mmHg; COHb 0.2 % (0.5-1.5); MetHb 0.4 % (0.0-1.5); O2Hb 94.8 % (94.0-97.0); PEEP,BG 5 cm H2O; SITE, ABG Right Radial; VENT MODE, BG ST 15/5 R14 60%
[2017-04-02 21:36] LABS: ALANINE AMINOTRANSFERASE 10 U/L (12-78); ALBUMIN 3.1 g/dL (3.4-5.0); ALKALINE PHOSPHATASE 89 U/L (46-116); ASPARTATE AMINOTRANSFERASE 14 U/L (15-37); B-TYPE NATRIURETIC PEPTIDE 20874 PG/ML (0-125); BILIRUBIN,DIRECT 0.1 mg/dL (0.0-0.2); BILIRUBIN,TOTAL 0.5 mg/dL (0.2-1.0); CARBON DIOXIDE 28 mmol/L (21-32); CHLORIDE 104 mmol/L (98-107); CREATININE 2.3 mg/dL (0.6-1.3); POTASSIUM 4.4 mmol/L (3.5-5.1); SODIUM SERUM 140 mmol/L (136-145); UREA NITROGEN, BLOOD 52 mg/dL (7-18)
--- NOTE | 2017-04-02 21:40 | NUR ---
CALLED [facility] ORACLE FINANCIALS DEVELOPER DOCTOR WAS PAGED.
[2017-04-02 21:41] LABS: GLUCOSE 379 mg/dL (74-106)
[2017-04-02] MEDS ORDERED: LEVOFLOXACIN 750 MG /D5W 150ML 150 ML IV ONE (21:45)
[2017-04-02] MEDS ORDERED: FUROSEMIDE 40 MG/4 ML VIAL ONE (21:45)
[2017-04-02] MEDS ORDERED: CARV6.25 PO (21:48)
[2017-04-02] MEDS ORDERED: ATOR20TA PO (21:48)
[2017-04-02] MEDS ORDERED: ASPI-605 PO (21:48)
[2017-04-02] MEDS ORDERED: AMLO5TAB4 PO (21:48)
[2017-04-02] MEDS ORDERED: BUME1TAB4 PO (21:48)
[2017-04-02] MEDS ORDERED: ASPIRIN 300 MG/SUPP.RECT RC ONE ×2 (21:55→22:00)
[2017-04-02] MEDS ORDERED: INSULIN REGULAR, HUMAN 100 UNIT/ML 10 ML VIAL ONE (21:55)
[2017-04-02] MEDS ORDERED: Z GUARD REMEDY 2 OZ OINT TP PRN (22:00)
[2017-04-02] MEDS ORDERED: BUMETANIDE INJ 2 MG in IV NS 0.9% 32 ML IV ONE (22:00)
[2017-04-02] MEDS ORDERED: MAG HYDROX/AL HYDROX/SIMETH 30 ML UDC PO PRN (22:00)
[2017-04-02] MEDS ORDERED: INSULIN REGULAR, HUMAN 100 UNIT/ML 10 ML VIAL SQ ONE (22:00)
[2017-04-02] MEDS ORDERED: ZOLPIDEM TARTRATE 5 MG TABLET PO PRN (22:00)
[2017-04-02] MEDS ORDERED: HYDROCODONE/APAP 5/325MG 1 EACH TABLET PO PRN (22:00)
[2017-04-02] MEDS ORDERED: MAGNESIUM HYDROXIDE 30 ML UDC PO PRN (22:00)
[2017-04-02] MEDS ORDERED: LEVOFLOXACIN 750 MG /D5W 150ML PIGGYBACK IV ONE (22:00)
[2017-04-02] MEDS ORDERED: FUROSEMIDE 40 MG/4 ML VIAL IV ONE (22:00)
[2017-04-02] MEDS ORDERED: LEVOFLOXACIN 500 MG /D5W 100ML 500 MG in PREMIX 1 EA IV SCH (22:00)
[2017-04-02] MEDS ORDERED: ONDANSETRON HCL/PF 4 MG/2 ML VIAL IVP PRN (22:00)
[2017-04-02] MEDS ORDERED: DEXTROSE 50%-WATER 50 ML DISP.SYRIN IV PRN (22:00)
[2017-04-02] MEDS ORDERED: ACETAMINOPHEN 325 MG TABLET PO PRN (22:00)
--- NOTE | 2017-04-02 22:14 | NUR ---
Patient reported "feeling better with breathing" s/p breathing treatment. ongoing biPAP at 15/5, rate 14, fio2 at 60%. Patient refused aspirin supp inspite teachings and encouragement, Dr Sorensen notified.
--- NOTE | 2017-04-02 22:32 | NUR ---
Report given Tiago GARCIA for icu admission and raphael.
--- NOTE | 2017-04-02 22:40 | NUR ---
Transported to room 105 via [facility] protocol, no incident noted. Son at bedside.
[2017-04-02 23:00] VITALS: BP 134/73
--- NOTE | 2017-04-02 23:02 | NUR ---
RT PT TRANSFERRED FROM ER TO [facility]. PT TAKEN OFF BIPAP AND PLACED ON 5 LNC. RN AWARE. PT AWAKE AND ALERT WITH NO SOB OR RESP DISTRESS NOTED AT THE TIME. Addendum: 04/02/17 at 2303 by AURORA FERNANDEZ RT Amended: Links added.
--- NOTE | 2017-04-02 23:20 | NUR ---
RN NOTES (ADMISSION) PX ADMITTED TO ICU EXTENSION, AWAKE, ALERT, ORIENTED X 3, ARMENIA AND PALAUAN SPEAKING WITH LITTLE POLISH; ORIENTED PX TO THE UNIT; ON NC AT 4 LPM SATURATING 92-95%, NOT IN DISTRESS RESP EVEN AND UNLABORED; PIV ON RIGHT FA G18 FLUSHED WITH SALINE PATENT INTACT; PX ABLE TO MOVE BY SELF IN BED AND ALSO USE BEDSIDE COMMODE WITH STAFF SUPPORT; SEE SKIN FLOWHSEET FOR SKIN ASSESSMENT; PX DENIED CHEST PAIN, SOB, N/V; DR. MAX AT BEDSIDE.
[2017-04-02] MEDS ORDERED: IV NS 0.9% 250 ML IV ONE (23:29)
[2017-04-02] MEDS ORDERED: SECONDARY IV SET 1 EA INFUS.SET MC ONE (23:29)
[2017-04-02] MEDS ORDERED: PIPERACILLIN /TAZOBACTAM 3.375 G VIAL IV ONE (23:33)
[2017-04-02] MEDS ORDERED: BUMETANIDE INJ 0.25 MG/ML VIAL ONE (23:33)
[2017-04-02] MEDS ORDERED: IV D5W 50 ML IV ONE (23:34)
[2017-04-02] MEDS ORDERED: IV NS 0.9% 50 ML IV ONE (23:34)
[2017-04-02] MEDS: BLOOD SUGAR DIAGNOSTIC 1 EACH STRIP VI SCH (23:54)
[2017-04-02] MEDS: PIPERACILLIN /TAZOBACTAM 3.375 G in IV D5W 50 ML IV SCH (23:56)
[2017-04-02 23:58] VITALS: BP 134/54
[2017-04-03] VITALS (19 sets, daily range): BP systolic 117–149; BP diastolic 50–93
[2017-04-03] MEDS ORDERED: ENOXAPARIN SODIUM 40 MG/0.4 ML DISP.SYRIN SQ SCH
--- NOTE | 2017-04-03 | NUR ---
RN NOTES DUE MEDS GIVEN, PX REFUSED INSULIN DESPITE HEALTH TEACHINGS AND INSTRUCTION, TOLERATED SMALL AMOUT OF SANDWICH; V/S WNL.
[2017-04-03] MEDS ORDERED: ENOXAPARIN SODIUM 40 MG/0.4 ML DISP.SYRIN SQ ONE (00:08)
[2017-04-03] MEDS: *INSULIN REGULAR(HUMULIN R)HUM 100 UNIT/ML VIAL SQ PRN (00:19)
--- NOTE | 2017-04-03 01:14 | NUR ---
RN NOTES SPOKE WITH ONCALL PHARMACIST INA INFORMED OF PX SITUATION INCLUDING CREATININE LEVEL, ORDERED 1 GM VANCO X 1 NOW AND SAID THE DAY PHARMACIST WILL ADJUST IN THE MORNING.
[2017-04-03] MEDS ORDERED: VANCOMYCIN 1 GM in IV D5W 250 ML IV SCH (01:30)
[2017-04-03] MEDS ORDERED: VANCOMYCIN 1 GM VIAL ONE (01:46)
[2017-04-03] MEDS ORDERED: IV D5W 250 ML IV ONE (01:46)
[2017-04-03] MEDS ORDERED: SECONDARY IV SET 1 EA INFUS.SET MC ONE (01:55)
[2017-04-03 03:18] LABS: BASOPHILS % (AUTO) 0.3 % (0.0-2.0); EOSINOPHILS # (AUTO) 0.1 /CMM (0.0-0.7); EOSINOPHILS % (AUTO) 0.6 % (0.0-6.0); HEMATOCRIT 30 % (33-45); HEMOGLOBIN 9.7 g/dL (11.5-14.8); LYMPHOCYTES # (AUTO) 0.5 /CMM (0.8-4.8); LYMPHOCYTES % (AUTO) 3.8 % (20.0-44.0); MEAN CORPUSCULAR HEMOGLOBIN 26 PG (26.0-33.0); MEAN CORPUSCULAR HGB CONC 33 g/dl (31.0-36.0); MEAN CORPUSCULAR VOLUME 80 fL (82-100); MONOCYTES # (AUTO) 0.1 /CMM (0.1-1.30); NEUTROPHILS # (AUTO) 11.3 /CMM (1.8-8.9); NEUTROPHILS % (AUTO) 94.3 % (43.0-81.0); PLATELET COUNT (AUTO) 274 /CMM (150-450); RDW COEFFICIENT OF VARIATION 16.8 (11.5-15.0); RED BLOOD CELL COUNT(AUTO) 3.71 MIL/uL (4.0-5.2)
[2017-04-03 03:36] LABS: CALCIUM, SERUM 7.4 mg/dL (8.5-10.1); CARBON DIOXIDE 28 mmol/L (21-32); CHLORIDE 103 mmol/L (98-107); CREATININE 2.1 mg/dL (0.6-1.3); GLUCOSE 311 mg/dL (74-106); MAGNESIUM 2.1 mg/dL (1.8-2.4); PHOSPHORUS 4.1 mg/dL (2.5-4.9); POTASSIUM 4.1 mmol/L (3.5-5.1); SODIUM SERUM 138 mmol/L (136-145); UREA NITROGEN, BLOOD 54 mg/dL (7-18)
[2017-04-03] MEDS ORDERED: PIPERACILLIN /TAZOBACTAM 3.375 G VIAL IV ONE (04:53)
[2017-04-03] MEDS ORDERED: IV D5W 50 ML IV ONE (04:53)
[2017-04-03 05:09] LABS: LYMPHOCYTES % (MANUAL) 4 % (16-48); MONOCYTES % (MANUAL) 2 % (0-11.0); NEUTROPHILS % (MANUAL) 94 (42-76)
[2017-04-03] MEDS: PIPERACILLIN /TAZOBACTAM 3.375 G in IV D5W 50 ML IV SCH (05:18)
--- NOTE | 2017-04-03 06:12 | NUR ---
RN NOTES EARLY AM CARE OFFEREED BUT PX REFUSED, INFORMED OF IMPORTANCE, ASSISTED PX IN GETTING OUT OF BED TO BEDSIDE COMMODE, TOLERATED; PX DENIED PAIN, SOB, O2 SAT 97% ON NC AT 3 LPM; NO NEW SKIN BREAKDOWN; CONTINUED TO MONITOR.
[2017-04-03] MEDS: BLOOD SUGAR DIAGNOSTIC 1 EACH STRIP VI SCH ×4 (06:36→22:06)
[2017-04-03] MEDS: INSULIN REGULAR, HUMAN 100 UNIT/ML 3 ML VIAL SQ PRN ×3 (06:36→17:40)
--- NOTE | 2017-04-03 07:11 | NUR ---
RN NOTES CONDITION UNCHANGED, DENIED PAIN, SOB; REPORT GIVEN TO ELIZABETH TEACHERS ASSISTANT.
[2017-04-03] MEDS: AMLODIPINE BESYLATE 5 MG TABLET PO SCH (08:32)
[2017-04-03] MEDS: CARVEDILOL 6.25 MG TABLET PO SCH ×2 (08:34→17:15)
[2017-04-03] MEDS ORDERED: AMLODIPINE BESYLATE 5 MG TABLET PO SCH (09:00)
[2017-04-03] MEDS ORDERED: ASPIRIN EC 81 MG TABLET.DR PO SCH (09:00)
[2017-04-03] MEDS ORDERED: FEE PK DOSING 1 MIN EA MC ONE (09:14)
--- NOTE | 2017-04-03 09:24 | NUR ---
TUBE TESTER TIRED TO CONVINCE PATIENT TO TAKE MEDICATION BUT REFUSED. WAS ABLE TO CONVINCE PATIENT TO TAKE COREG. PATIENT WANTED TO GO HOME, AND ADVISE HER TO STAY IN THE HOSPITAL TO STAY UNTIL THE PHYSICIAN COMES TO SEE HER.
[2017-04-03] MEDS: ZOSYN IVPB 2.25 G in IV D5W 50ml IV SCH ×2 (12:08→17:11)
[2017-04-03] MEDS ORDERED: hydrALAZINE HCL IV 20 MG VIAL IV PRN (14:30)
[2017-04-03] MEDS ORDERED: HEPARIN SODIUM, PORCINE 5000 UNITS/1 ML VIAL SQ ONE (16:30)
[2017-04-03] MEDS ORDERED: IV SET PRIMARY PUMP SET 1 EA INFUS.SET MC ONE (17:05)
[2017-04-03] MEDS: HEPARIN INFUSION/D5W 500 ML IV PRN (17:14)
[2017-04-03] MEDS: BUMETANIDE INJ 0.25 MG/ML VIAL IV SCH (17:16)
--- NOTE | 2017-04-03 18:59 | NUR ---
RN NOTES PATIENT ENDORSED TO NEXT SHIFT IN STABLE CONDITION FOR CONTINUITY OF CARE. NO SIGNIFICANT CHANGES NOTED. WILL CONT TO MONITOR.
--- NOTE | 2017-04-03 19:30 | NUR ---
[facility] RN INITIAL NOTES RECEIVED PATIENT AWAKE A/OX3, SON AT BEDSIDE. RESPIRATIONS EVEN AND UNLABORED ON 3LPMO2 VIA NC. DENIES SOB. ON TELE MONITOR SR WITH INVERTED TWAVES 71. DENIES PAIN OR DISCOMFORT. SKIN WARM AND DRY TO TOUCH. WITH RFA 18G PATENT AND INTACT, WITH HEPARIN DRIP AT 912 UNITS/HR. NO S/S OF BLEEDING. SIDE RAILS UP AND LOCKED. BED KEPT AT LOWEST POSITION. CALL LIGHT KEPT WITHIN EASY REACH. WILL CONTINUE TO MONITOR.
--- NOTE | 2017-04-03 19:47 | NUR ---
ALL [facility] ONCE CLEARED FOR PATIENTS SAFETY
[2017-04-03] MEDS ORDERED: ENOXAPARIN SODIUM 30 MG/0.3 ML DISP.SYRIN SQ SCH (21:00)
--- NOTE | 2017-04-03 21:15 | NUR ---
[facility] RN NOTES HAD GOLF TOURNAMENT CONSULTANT EXPLAIN TO PATIENT REGARDING HEPARIN DRIP AND NEED FOR PTT LEVELS, PATIENT WITH OTHER QUESTIONS REGARDING MEDICATIONS AND CONDITION. EXPLAINED TO PATIENT TO SPEAK WITH MD WHEN SHE HAS ANY QUESTIONS REGARDING HER CONCERNS. PATIENT REFUSED INSULIN, PATIENT REFUSED LIPITOR. EXPLAINED BENEFITS OF MEDICATIONS, PATIENT STILL REFUSED. WILL CONTINUE TO MONITOR.
[2017-04-03] MEDS: ATORVASTATIN 10 MG TABLET PO SCH (22:00)
[2017-04-03] MEDS ORDERED: ATORVASTATIN 10 MG TABLET PO SCH (22:00)
--- NOTE | 2017-04-04 | NUR ---
PATIENT REFUSED MIDNIGHT VITAL SIGNS, EXPLAINED THE NEED FOR MONITORING, PATIENT STILL REFUSED.
--- NOTE | 2017-04-04 00:15 | NUR ---
[facility] RN NOTES PATIENT REFUSED PTT LEVEL AT 2300, INFORMED DR. MAX REGARDING PATIENTS REFUSAL. PER MANSOOR INFORM DR. JAMISON IF PATIENT STILL REFUSES BLOOD DRAW, DT PATIENT HAS HISTORY OF REFUSING CARE. WILL CONTINUE TO MONITOR.
--- NOTE | 2017-04-04 00:30 | NUR ---
[facility] RN NOTES DR. JAMISON PAGED. WAITING FOR REPLY.
[2017-04-04] MEDS: ZOSYN IVPB 2.25 G in IV D5W 50ml IV SCH ×4 (00:51→17:55)
--- NOTE | 2017-04-04 01:00 | NUR ---
[facility] RN NOTES PATIENT REFUSED VANCO TROUGH DRAW. EXPLAINED TO PATIENT THE NEED FOR THE LEVELS, PATIENT STILL REFUSED. STATES "IN THE MORNING."
[2017-04-04] MEDS: VANCOMYCIN 1 GM in IV D5W 250ml IV SCH (02:26)
[2017-04-04 06:00] VITALS: BP 136/61
[2017-04-04] MEDS ORDERED: IV NS 0.9% 250 ML IV ONE (06:00)
--- NOTE | 2017-04-04 06:23 | NUR ---
[facility] RN CLOSING NOTES NO SIGNIFICANT CHANGES OVERNIGHT. NO C/O SOB. NO C/O PAIN OR DISCOMFORT. ABLE TO OBTAIN AM LABS. SKIN WARM AND DRY TO TOUCH. NO RESPIRATORY DISTRESS NOTED. SR WITH INVERTED TWAVES ON MONITOR. HEPARIN DRIP RUNNING AT 912 UNITS/HR. HOB ELEVATED. SIDE RAILS UP AND LOCKED. BED KEPT AT LOWEST POSITION. CALL LIGHT KEPT WITHIN EASY REACH. WILL ENDORSE CONTINUITY OF CARE TO AM NURSE.
[2017-04-04] MEDS: BLOOD SUGAR DIAGNOSTIC 1 EACH STRIP VI SCH ×4 (06:37→22:09)
[2017-04-04 06:41] LABS: CALCIUM, SERUM 7.8 mg/dL (8.5-10.1); CARBON DIOXIDE 29 mmol/L (21-32); CHLORIDE 102 mmol/L (98-107); CREATININE 2.2 mg/dL (0.6-1.3); GLUCOSE 148 mg/dL (74-106); POTASSIUM 4.2 mmol/L (3.5-5.1); SODIUM SERUM 138 mmol/L (136-145); UREA NITROGEN, BLOOD 57 mg/dL (7-18)
[2017-04-04 06:56] LABS: INR 1.02 (0.87-1.13); PROTHROMBIN TIME 10.9 SECS (9.5-12.7)
[2017-04-04 08:00] VITALS: BP 132/63
[2017-04-04] MEDS ORDERED: ASPIRIN EC 81 MG TABLET.DR PO SCH (09:00)
--- NOTE | 2017-04-04 09:00 | NUR ---
[facility] RN, PTT results 34 current heparin drip 912 units/hr increased to 250 units/hr now heparin drip at 1162 units/hr will give heparin bolus 4800 units ivp x1 will do PTT AT at 1500, per hospital protocol
[2017-04-04] MEDS: HEPARIN INFUSION/D5W 500 ML IV PRN ×2 (09:14→10:52)
[2017-04-04] MEDS: AMLODIPINE BESYLATE 5 MG TABLET PO SCH (09:17)
[2017-04-04] MEDS: CARVEDILOL 6.25 MG TABLET PO SCH ×2 (09:18→16:33)
[2017-04-04] MEDS: BUMETANIDE INJ 0.25 MG/ML VIAL IV SCH ×2 (09:18→16:24)
[2017-04-04] MEDS ORDERED: HEPARIN SODIUM, PORCINE 5000 UNITS/1 ML VIAL SQ ONE (10:30)
[2017-04-04] MEDS ORDERED: GUAIFENESIN 300 MG/15 ML UDC PO PRN ×2 (10:30→11:00)
[2017-04-04 12:00] VITALS: BP 136/69
[2017-04-04] MEDS: INSULIN REGULAR, HUMAN 100 UNIT/ML 3 ML VIAL SQ PRN (12:43)
[2017-04-04] MEDS ORDERED: VANCOMYCIN 0.75 GM in IV D5W 250 ML IV SCH (14:00)
[2017-04-04 16:00] VITALS: BP 141/70
--- NOTE | 2017-04-04 16:00 | NUR ---
[facility] RN,patient refused to blood brawn in 6 hrs PTT but encouraged SUNNY MANAGER CARDIAC was notified
[2017-04-04] MEDS: LACTOBACILLUS RHAMNOSUS GG 1 EACH CAP.SPRINK PO SCH (16:34)
--- NOTE | 2017-04-04 17:24 | NUR ---
[facility] RN, consult by Joey TECHNOLOGY OFFICER, Left message as ordered waiting for returning call back
--- NOTE | 2017-04-04 19:45 | NUR ---
RN INITIAL NOTE; PT IN THE BED SITTING WITHOUT ANY DISTRESS , A/O X 3 . FAMILY AT THE BED SITE . BREATHING EVEN AND UNLABORED ON 3 LPM VIA NC . SHOWING SB 59 WITH INVERTED T WAVE ON TELE MONITOR. RFA PERIPHERAL IV INTACT AND PATENT WITH CONTINUE HEPARIN DRIP @ 1150 UNITS AT THIS TIME . DENIED ANY CHEST PAIN . PT IS AMBULATORY , ABLE TO USE BED SIDE COMMODE. BED IN THE LOWEST/LOCKED POSITION , SAFETY MEASURES APPLIED. WILL CONTINUE OT MONITOR.
[2017-04-04 20:00] VITALS: BP 140/74
--- NOTE | 2017-04-04 20:00 | NUR ---
RN NOTE; PT KEEP REFUSING HEPARIN DRIP , VERBALIZED 'MY BLOOD IS ALREADY THIN , I DON'T NEED THIS MEDICINE, ' EXPLAINED ABOUT RISK OF STOPPING THE MEDICINE , PT STILL REFUSED . WILL INFORM DR JAMISON .
--- NOTE | 2017-04-04 20:35 | NUR ---
PT SEEN BY DR JAMISON , HEPARIN DRIP DC'D BY DR JAMISON PER PATIENT REQUEST.
[2017-04-04] MEDS ORDERED: LEVOFLOXACIN 500 MG /D5W 100ML 500 MG in PREMIX 1 EA IV SCH (21:00)
[2017-04-04] MEDS: ATORVASTATIN 10 MG TABLET PO SCH (22:00)
[2017-04-05] VITALS: BP 123/49
[2017-04-05] MEDS: ZOSYN IVPB 2.25 G in IV D5W 50ml IV SCH ×4 (00:21→18:18)
[2017-04-05] MEDS: VANCOMYCIN 1 GM in IV D5W 250ml IV SCH (02:00)
[2017-04-05 04:00] VITALS: BP 154/58
[2017-04-05] MEDS ORDERED: IV NS 0.9% 250 ML IV ONE (04:56)
[2017-04-05] MEDS: BLOOD SUGAR DIAGNOSTIC 1 EACH STRIP VI SCH ×4 (06:36→22:00)
--- NOTE | 2017-04-05 07:30 | NUR ---
RN NOTES RECEIVED PT SITTING AT THE EDGE OF THE BED, PT IS AWAKE ALERT ORIENTED X3 ABLE TO COMMUNICATE NEEDS. ON O2@3LPM VIA NC, NO SOB NOTED. SB WITH 1ST DEGREE AV BLOCK HR 58 AT THIS TIME. PT REFUSED VS CHECKED, EXPLAINED RISKS AND BENEFITS. PT OKAYED VS CHECK BUT NOT TEMP CHECK. PT NOTED WITH MEDS AT THE BEDSIDE, PT EDUCATION PROVIDED. PT INSISTED TO KEEP HER MEDS AT BEDSIDE. FREQUENT VISUAL CHECKS MADE. SAFTEY MAINTAINED, NEEDS ATTENDED. CALL LIGHT WITHIN REACH.
--- NOTE | 2017-04-05 07:39 | NUR ---
RN EOS NOTE; PT REMAINED STABLE DURING THE SHIFT. NO ANY DISTRESS NOTED. PT REFUSED AM CARE. ALL NEEDS ATTENDED . S/P HEPARIN DRIP, NO ANY SIGN OF ACTIVE BLEEDING NOTED DURING THE SHIFT, ENDORSED TO DAY SHIFT RN FOR CONTINUITY OF CARE.
--- NOTE | 2017-04-05 07:40 | NUR ---
RN NOTES GT STILL NOTED WITH RESIDUAL APRROX 18O ML, CN SOON AWARE. KEPT PT ON NPO AT THIS TIME. ONGOING IVF D5NS RUNNING@50ML/HR
[2017-04-05 08:00] VITALS: BP 145/65
[2017-04-05] MEDS: CARVEDILOL 6.25 MG TABLET PO SCH ×2 (09:00→17:00)
[2017-04-05] MEDS: CLOPIDOGREL BISULFATE 75 MG TABLET PO SCH (09:00)
[2017-04-05] MEDS: ASPIRIN 81 MG TAB.CHEW PO SCH ×2 (09:00→09:07)
[2017-04-05] MEDS: LACTOBACILLUS RHAMNOSUS GG 1 EACH CAP.SPRINK PO SCH ×2 (09:00→17:00)
[2017-04-05] MEDS: AMLODIPINE BESYLATE 5 MG TABLET PO SCH (09:00)
[2017-04-05] MEDS: BUMETANIDE (1 MG) 1 MG TABLET PO SCH ×2 (09:07→18:17)
--- NOTE | 2017-04-05 09:16 | NUR ---
RN NOTES' PT REFUSED AM MEDS. PT AGREED TO ONLY TAKE BUMEX. RISKS AND BENEFITS EXPLAINED. PT STRONGLY REFUSED.
[2017-04-05 11:09] LABS: CALCIUM, SERUM 7.5 mg/dL (8.5-10.1); CARBON DIOXIDE 27 mmol/L (21-32); CHLORIDE 104 mmol/L (98-107); CREATININE 2.3 mg/dL (0.6-1.3); GLUCOSE 146 mg/dL (74-106); POTASSIUM 4.6 mmol/L (3.5-5.1); SODIUM SERUM 140 mmol/L (136-145); UREA NITROGEN, BLOOD 61 mg/dL (7-18)
[2017-04-05 12:00] VITALS: BP 148/52
[2017-04-05] MEDS: INSULIN REGULAR, HUMAN 100 UNIT/ML 3 ML VIAL SQ PRN (12:08)
--- NOTE | 2017-04-05 13:00 | NUR ---
RN NOTES DR LOZANO AT BEDSIDE, PT WAS SEEN AND EVALUATED, REPORTED TO MD PT'S REFUSE CARE AND REFUSING MEDS. PT WAS NOTED KEEPING MEDICINE AT BEDSIDE AND SHE TAKES IT ON HER OWN TIME SCHEDULE, DESPITE OF CONSTANT EDUCATION AND REMINDER. PER DR MCGUIRE TO HAVE PSYCH TO SEE PT. DR MCGUIRE WILL BE REACHED.
--- NOTE | 2017-04-05 13:33 | NUR ---
RN NOTES PATIENT DID ACCUCHECK WITH OWN MACHINE WELL CHECKING WITH OUR MACHINE WELL. I RECEIVED A NUMBER OF 139 WHICH ON A SLIDING SCALE REQUIRED ADMINISTRATION OF 2 UNITS OF REGULAR INSULIN. PT REFUSED STATING "I HAVE MEDICATION FROM HOME AND I DO NOT WANT THAT, I ONLY TAKE THE INJECTION IF IT IS FOR SUGAR NEEDING 6 UNITS".
[2017-04-05 16:00] VITALS: BP 143/46
--- NOTE | 2017-04-05 17:40 | NUR ---
RN NOTES CALLED DR MCGUIRE FOR PSYCH CONSULT, LEFT A MESSAGE AWAITING FOR CALL BACK
--- NOTE | 2017-04-05 17:44 | NUR ---
RN NOTES SPOKE WITH DR MAYNOR GALAVIZ MD OF NEW CONSULT, PER DR MCGUIRE SHE WILL SEE THE PT AZUL.
--- NOTE | 2017-04-05 19:20 | NUR ---
RN INITIAL NOTES RECEIVED PATIENT SITTING UP ON EDGE OF BED. NO ACUTE DISTRESS AND DISCOMFORT. PATIENT ON 3LPM OF O2 VIA NC, RESPIRATION IS EVEN AND UNLABORED WITH NO SOB. SR WITH OCCASIONAL PAC IN THE 60s. R FOREARM G18, FLUSHED AND PATENT, NO SIGNS OF INFILTRATION. PATIENT'S NEEDS ANTICIPATED AND MET. SAFETY AND COMFORT ENSURED. BED IN LOW AND LOCKED POSITION. CALL LIGHT IN REACH. WILL MONITOR CLOSELY.
[2017-04-05] MEDS: IPRATROPIUM NEB FS 0.5 MG/2.5 ML AMPUL.NEB NEB SCH ×2 (19:30→23:50)
--- NOTE | 2017-04-05 20:00 | NUR ---
RN NOTES PATIENT REFUSED 1999 VS CHECK, ATTEMPTED TO EXPLAIN TO PATIENT THE RISKS AND BENEFITS. PATIENT STRONGLY REFUSED. PATIENT DENIES ANY DISCOMFORT, NO SOB, NO CHEST PAIN. REMAINS SR ON TELE WITH HR OF 64.
[2017-04-05] MEDS: ENOXAPARIN SODIUM 30 MG/0.3 ML DISP.SYRIN SQ SCH (21:00)
[2017-04-05] MEDS: VANCOMYCIN 1 GM in IV D5W 250 ML IV SCH (21:58)
[2017-04-05] MEDS: ATORVASTATIN 10 MG TABLET PO SCH (22:00)
--- NOTE | 2017-04-05 22:23 | NUR ---
RN NOTES PATIENT REFUSED ALL HS MEDS ORDERED. ATTEMPTED TO EXPLAIN AND TALK TO THE PATIENT WITH REGARDS TO THE RISKS AND BENEFITS OF THE MEDICATIONS ORDERED WITH IRISH SPEAKING STAFF AT BEDSIDE FOR TRANSLATION. PATIENT STRONGLY REFUSES, ATTEMPTED EXPLANATION X3, TO NO AVAIL. CALLED AND SPOKE WITH DR. MAX AND DR. BUENO OF THE PATIENT'S REFUSAL OF MEDS, PRIMARILY WITH THE NEWLY ORDERED ASA, PLAVIX AND LOVENOX. MDs AWARE OF THE PATIENT'S NONCOMPLIANCE WITH CARE AND MEDS. PATIENT WITH PENDING CONSULT WITH DR. MCGUIRE FOR PSYCH EVAL.
[2017-04-06] VITALS (7 sets, daily range): BP systolic 105–162; BP diastolic 50–64
[2017-04-06] MEDS: ZOSYN IVPB 2.25 G in IV D5W 50ml IV SCH ×4 (00:54→17:50)
[2017-04-06] MEDS: IPRATROPIUM NEB FS 0.5 MG/2.5 ML AMPUL.NEB NEB SCH ×6 (03:15→23:29)
[2017-04-06] MEDS ORDERED: IV NS 0.9% 250 ML IV ONE (05:25)
[2017-04-06] MEDS ORDERED: SECONDARY IV SET 1 EA INFUS.SET MC ONE (05:26)
--- NOTE | 2017-04-06 07:05 | NUR ---
RN CLOSING NOTES PATIENT STILL REFUSING CARE AND TREATMENT. REFUSED BLOOD SUGAR CHECK ALL NIGHT, NO SIGNS OF HYPO/HYPERGLYCEMIA MONITORED. REMAINS ON 3LPM OF O2 VIA NC, RESPIRATION IS EVEN AND UNLABORED, NO DISTRESS. ASSISTED WITH ADLS NEEDED. SAFETY AND COMFORT ENSURED. REFUSED AM LABS, WILL ENDORSE FOR F/UP. NEEDS ANTICIPATED AND MET. SAFETY AND COMFORT ENSURED. BED IN LOW AND LOCKED POSITION, CALL LIGHT IN REACH. WILL ENDORSE ACCORDINGLY FOR CONTINUITY OF CARE.
[2017-04-06] MEDS: BLOOD SUGAR DIAGNOSTIC 1 EACH STRIP VI SCH ×4 (07:30→21:12)
[2017-04-06] MEDS: AMLODIPINE BESYLATE 5 MG TABLET PO SCH (09:00)
[2017-04-06] MEDS: BUMETANIDE (1 MG) 1 MG TABLET PO SCH (09:00)
[2017-04-06] MEDS: ASPIRIN 81 MG TAB.CHEW PO SCH (09:00)
[2017-04-06] MEDS: LACTOBACILLUS RHAMNOSUS GG 1 EACH CAP.SPRINK PO SCH ×2 (09:00→16:59)
[2017-04-06] MEDS: CLOPIDOGREL BISULFATE 75 MG TABLET PO SCH (09:00)
[2017-04-06] MEDS: CARVEDILOL 6.25 MG TABLET PO SCH ×2 (09:00→17:49)
--- NOTE | 2017-04-06 09:11 | NUR ---
RN NOTES PT REFUSED AM MEDS, RISKS AND BENEFITS EXPLAINED. PT STRONGLY REFUSED
[2017-04-06] MEDS ORDERED: VANCOMYCIN 1 GM in IV D5W 250 ML IV SCH (12:00)
[2017-04-06 13:29] LABS: CARBON DIOXIDE 29 mmol/L (21-32); CHLORIDE 104 mmol/L (98-107); POTASSIUM 4.6 mmol/L (3.5-5.1); SODIUM SERUM 140 mmol/L (136-145)
[2017-04-06 13:30] LABS: CALCIUM, SERUM 7.7 mg/dL (8.5-10.1); CREATININE 2.3 mg/dL (0.6-1.3); GLUCOSE 128 mg/dL (74-106); UREA NITROGEN, BLOOD 64 mg/dL (7-18)
[2017-04-06] MEDS: VANCOMYCIN 1 GM in IV D5W 250 ML IV SCH (14:00)
--- NOTE | 2017-04-06 14:07 | NUR ---
RN NOTES [facility], WILL HOLD 1400 DOSE
--- NOTE | 2017-04-06 18:00 | NUR ---
RN NOTES BS 159MG/DL, REFUSED INSULIN RISKS AND BENEFITS EXPLAINED. SON AT BEDSIDE
--- NOTE | 2017-04-06 19:30 | NUR ---
RN NOTES RECEIVED PATIENT IN BED AWAKE, AO X 3, ABLE TO MAKE NEEDS KNOWN. NO ACUTE DISTRESS NOTED. DENIES ANY PAIN AT THIS TIME. TELE READING SINUS RHYTHM. IV SITE PATENT, INTACT; FLUSHED. NO SYMPTOMS OF HYPER/HYPOGLYCEMIA. ON LOW BED WITH BILATERAL UPPER SIDE RAILS UP. CALL LIGHT WITHIN EASY REACH. WILL CONTINUE TO MONITOR.
[2017-04-06] MEDS: ENOXAPARIN SODIUM 30 MG/0.3 ML DISP.SYRIN SQ SCH (21:00)
[2017-04-06] MEDS: ATORVASTATIN 10 MG TABLET PO SCH (21:59)
[2017-04-07] VITALS: BP 148/68
[2017-04-07 00:08] VITALS: BP 148/68
[2017-04-07] MEDS: ZOSYN IVPB 2.25 G in IV D5W 50ml IV SCH ×3 (00:08→12:00)
[2017-04-07] MEDS: IPRATROPIUM NEB FS 0.5 MG/2.5 ML AMPUL.NEB NEB SCH ×3 (03:30→11:30)
[2017-04-07 04:00] VITALS: BP 140/60
[2017-04-07 04:15] VITALS: BP 140/60
--- NOTE | 2017-04-07 06:29 | NUR ---
RN NOTES PATIENT ASLEEP, EASILY AROUSABLE. RESPIRATIONS EVEN. NO SIGNS OF PAIN NOTED. DUE MEDS GIVEN WITH NO ASE NOTED. SAFETY PRECAUTIONS AND COMFORT MEASURES IN PLACE. WILL GIVE REPORT TO DAY SHIFT FOR CONTINUITY OF CARE.
[2017-04-07] MEDS: BLOOD SUGAR DIAGNOSTIC 1 EACH STRIP VI SCH ×2 (06:43→12:04)
[2017-04-07 08:00] VITALS: BP 135/68
[2017-04-07] MEDS: ASPIRIN 81 MG TAB.CHEW PO SCH (08:38)
[2017-04-07] MEDS: LACTOBACILLUS RHAMNOSUS GG 1 EACH CAP.SPRINK PO SCH (08:38)
[2017-04-07] MEDS: CLOPIDOGREL BISULFATE 75 MG TABLET PO SCH (08:38)
[2017-04-07] MEDS: CARVEDILOL 6.25 MG TABLET PO SCH (08:39)
[2017-04-07] MEDS ORDERED: BUMETANIDE (1 MG) 1 MG TABLET PO SCH (09:00)
[2017-04-07 09:31] LABS: BASOPHILS # (AUTO) 0.1 /CMM (0.0-0.2); BASOPHILS % (AUTO) 0.8 % (0.0-2.0); EOSINOPHILS # (AUTO) 0.4 /CMM (0.0-0.7); EOSINOPHILS % (AUTO) 6.3 % (0.0-6.0); HEMATOCRIT 29 % (33-45); HEMOGLOBIN 9.2 g/dL (11.5-14.8); LYMPHOCYTES # (AUTO) 1.1 /CMM (0.8-4.8); LYMPHOCYTES % (AUTO) 16.4 % (20.0-44.0); MEAN CORPUSCULAR HEMOGLOBIN 26 PG (26.0-33.0); MEAN CORPUSCULAR HGB CONC 32 g/dl (31.0-36.0); MEAN CORPUSCULAR VOLUME 81 fL (82-100); MONOCYTES # (AUTO) 0.5 /CMM (0.1-1.30); NEUTROPHILS # (AUTO) 4.6 /CMM (1.8-8.9); NEUTROPHILS % (AUTO) 68.5 % (43.0-81.0); PLATELET COUNT (AUTO) 249 /CMM (150-450); RDW COEFFICIENT OF VARIATION 16.6 (11.5-15.0); RED BLOOD CELL COUNT(AUTO) 3.53 MIL/uL (4.0-5.2); WHITE BLOOD COUNT (AUTO) 6.7 K/uL (4.3-11.0)
[2017-04-07 09:48] LABS: VANCOMYCIN,TROUGH 20 ug/ml (12-20)
[2017-04-07 09:52] LABS: ALANINE AMINOTRANSFERASE 22 U/L (12-78); ALBUMIN 2.4 g/dL (3.4-5.0); ALKALINE PHOSPHATASE 62 U/L (46-116); ASPARTATE AMINOTRANSFERASE 15 U/L (15-37); BILIRUBIN,TOTAL 0.4 mg/dL (0.2-1.0); CALCIUM, SERUM 7.8 mg/dL (8.5-10.1); CARBON DIOXIDE 29 mmol/L (21-32); CHLORIDE 104 mmol/L (98-107); CREATININE 2.3 mg/dL (0.6-1.3); GLUCOSE 163 mg/dL (74-106); MAGNESIUM 2.2 mg/dL (1.8-2.4); PHOSPHORUS 4.5 mg/dL (2.5-4.9); POTASSIUM 4.5 mmol/L (3.5-5.1); SODIUM SERUM 139 mmol/L (136-145); TOTAL PROTEIN, SERUM 5.9 g/dL (6.4-8.2); UREA NITROGEN, BLOOD 58 mg/dL (7-18)
[2017-04-07] MEDS ORDERED: CLOP75TA2 PO (11:42)
[2017-04-07] MEDS ORDERED: ATOR10TA PO (11:42)
[2017-04-07 12:00] VITALS: BP 128/67
[2017-04-07] MEDS: *INSULIN REGULAR(HUMULIN R)HUM 100 UNIT/ML VIAL SQ PRN (12:39)
== END 2017-04-07 15:15 | disposition home or self-care (01) | DRG 280 ==
LOC: ER 21:00 → ICUOV 22:33 → TELE-TD 04-03 12:56 → TELE1 04-05 12:36 → MEDSG1 04-07 10:28
PROVIDERS: ADMIT Family Medicine; ATTEND Family Medicine
PROC: 5A09357 Assistance with Respiratory Ventilation, Less than 24 Consecutive Hours, Continuous Positive Airway Pressure (ICD-10-PCS; principal; 2017-04-02)
DX: I13.0 Hypertensive heart and chronic kidney disease with heart failure and stage 1 through stage 4 chronic kidney disease, or unspecified chronic kidney disease (principal); J15.6 Pneumonia due to other Gram-negative bacteria; I21.4 Non-ST elevation (NSTEMI) myocardial infarction; I50.33 Acute on chronic diastolic (congestive) heart failure; J96.01 Acute respiratory failure with hypoxia; N17.0 Acute kidney failure with tubular necrosis; J15.9 Unspecified bacterial pneumonia; J44.0 Chronic obstructive pulmonary disease with (acute) lower respiratory infection; N17.9 Acute kidney failure, unspecified; E44.0 Moderate protein-calorie malnutrition; I74.8 Embolism and thrombosis of other arteries; N18.4 Chronic kidney disease, stage 4 (severe); E11.22 Type 2 diabetes mellitus with diabetic chronic kidney disease; D63.8 Anemia in other chronic diseases classified elsewhere; E66.9 Obesity, unspecified; E78.5 Hyperlipidemia, unspecified; F17.210 Nicotine dependence, cigarettes, uncomplicated; F39 Unspecified mood [affective] disorder; I25.10 Atherosclerotic heart disease of native coronary artery without angina pectoris; I27.2 Other secondary pulmonary hypertension; E88.09 Other disorders of plasma-protein metabolism, not elsewhere classified; I34.0 Nonrheumatic mitral (valve) insufficiency; E11.610 Type 2 diabetes mellitus with diabetic neuropathic arthropathy; Z68.28 Body mass index [BMI] 28.0-28.9, adult; I36.1 Nonrheumatic tricuspid (valve) insufficiency; E11.51 Type 2 diabetes mellitus with diabetic peripheral angiopathy without gangrene; N25.0 Renal osteodystrophy; F01.50 Vascular dementia, unspecified severity, without behavioral disturbance, psychotic disturbance, mood disturbance, and anxiety; Z98.61 Coronary angioplasty status; F09 Unspecified mental disorder due to known physiological condition; I35.0 Nonrheumatic aortic (valve) stenosis; E55.9 Vitamin D deficiency, unspecified
CPT/HCPCS: 36415; 36600; 71010-TC; 80048-TC; 80053-TC; 80076-TC; 80202-TC; 82962-TC; 83605-TC; 83735-TC; 83880; 84100-TC; 84484-TC; 85025-TC; 85610-TC; 85730-TC; 87040-TC; 87081-TC; 93308-TC; 94799-TC; 99082-TC; A4216; A4606; J1644; J1650; J1815; J1940; J1956; J2543; J2930; J3105; J3370; J3475; J3490; J7050; J7060; Z7610